=== PATIENT | male | born 1980 | race Caucasian/White ===

== ENCOUNTER 2018-12-12 16:29 | Inpatient (IN) ==
--- NOTE | 2018-12-12 16:39 | Emergency Department Note ---
Disposition Clinical Impression: Suicidal ideation Depression Qualifiers: Depression Type: unspecified Qualified Code(s): F32.9 - Major depressive disorder, single episode, unspecified Disposition: Still a Patient Condition: Good Instructions: Depression (ED), Suicide Prevention for Adults (ED) Referrals: NONE,PCP [Primary Care Provider] - Forms: ED Satisfaction Letter Time of Disposition: 19:01 Psych HPI - General Chief Complaint: ED Psychiatric Symptoms Stated Complaint: Psych Eval Time Seen by Provider: 12/12/18 16:31 Source: EMS Nursing Notes Reviewed: Yes Vital Signs Reviewed: Yes - History of Present Illness HPI Narrative: 38-year-old male has been feeling well for the last couple months. Says been getting more more depressed. Polysubstance abuse. Feels that he wants to hurt himself. Did not specify what his plan was but he said that he has one. He was seen in another [facility]. He was medically cleared. He is sent here for psych evaluation. He was stable in route and at the other facility. Patient denies other complaints at this time. - Related Data Home Medications Medication Instructions Recorded Confirmed No Known Home Drugs 12/12/18 12/12/18 Allergies Allergy/AdvReac Type Severity Reaction Status Date / Time No Known Allergies Allergy Verified 12/10/18 21:48 All systems ED: reviewed and negative except as stated. Constitutional: Reports: as per HPI Eyes: Reports: as per HPI ENT ED: Reports: as per HPI Cardiovascular: Reports: as per HPI Respiratory: Reports: as per HPI Gastrointestinal: Reports: as per HPI Psychiatric: Reports: anxiety, depression, suicidal thoughts Past Medical History - Past Medical History Attestation: Yes The following information was validated with the patient. Medical history: Reports: no medical history Psychiatric history: Reports: anxiety, depression - Social History Smoking Status: Current every day smoker Smokeless Tobacco Status: No Alcohol use: Reports: heavy Drug use: Reports: opiates, marijuana, methamphetamine Physical Exam - General Limitations: no limitations General appearance: alert, in no apparent distress - Head Head exam: atraumatic - Eye Eye exam: Present: normal appearance - ENT ENT exam: normal exam - Neck Neck exam: Present: normal inspection - Chest Chest inspection: Present: normal inspection - Respiratory Respiratory exam: Present: normal lung sounds bilaterally - Cardiovascular Cardiovascular exam: Present: regular rate, normal rhythm - Abdominal Exam Abdominal exam: Present: soft, Non-Tender - Extremities Exam Extremities exam: Present: normal inspection - Back Exam Back exam: Present: normal inspection - Psychiatric Psychiatric exam: Present: depressed, suicidal ideation - Skin Skin exam: Present: warm, dry, other (Mild sunburn upper extremities) Course Vital Signs Temperature 98.6 F 12/12/18 16:32 Pulse Rate 98 12/12/18 16:32 Respiratory Rate 18 12/12/18 16:32 Blood Pressure 125/79 12/12/18 16:32 O2 Sat by Pulse Oximetry 98 12/12/18 16:32 Temperature 98.6 F 12/12/18 16:32 Pulse Rate 98 12/12/18 16:32 Respiratory Rate 18 12/12/18 16:32 Blood Pressure 125/79 12/12/18 16:32 O2 Sat by Pulse Oximetry 98 12/12/18 16:32 Oxygen Delivery Oxygen Delivery Room Air Psych - MDM Narrative Medical decision making narrative: We reviewed the labs from the prior hospital he did have an elevated alcohol level. This was repeated when he got here and it was found to be acceptable for psych evaluation. [facility] was notified. Their evaluation was pending at time of shift change. The patient was signed out to Dr. Spears for final disposition. - Lab Data Lab Results 12/12/18 Range/Units 16:54 Ethyl Alcohol < 10 (Less than 10) mg/dL Psychiatric Medical Clearance - Medical Clearance Checklist Does the patient have a NEW psychiatric condition?: No Any abnormalities indicating possible medical illness?: No Any history of medical issues?: No Medical History: No Social History Section defined Any abnormal vital signs prior to transfer?: No Current Vitals: Last Vital Signs Temp 98.6 F 12/12/18 16:32 Pulse 98 12/12/18 16:32 Resp 18 12/12/18 16:32 BP 125/79 12/12/18 16:32 Pulse Ox 98 12/12/18 16:32 Is the patient intoxicated or cognitively impaired?: No Psychiatric Lab Panel: Drug Levels and Toxicity 12/12/18 16:54 Ethyl Alcohol < 10 Any abnormalities on the physical exam?: No Any abnormal labs?: No Does the patient require durable medical equiptment?: No Is the patient ambulatory?: Yes Is the patient a fall risk?: No Has the patient been medically cleared?: Yes Any acute medical condition require Tx prior to transfer?: No Statement of Medical Clearance: I have evaluated the patient, reviewed diagnostic information, and certify that the patient's medical condition is sufficiently stable that transfer to the psychiatric unit does not pose a significant risk of deterioration. Matilda.[email or web address] - Lynette Situation: Demographics Background: Presenting Complaint Assessment: Vital Signs, Course and respsone to treatment Recommendation: Barrier(s) to disposition, Recommendation based on pending studies, treatments, or consults S.BFrandy Report Given to: Dr. Tory Ojeda Repor Time: 19:00
[2018-12-12] MEDS ORDERED: *HR* LORazepam 2 MG/ML VIAL IM PRN (21:11)
[2018-12-12] MEDS ORDERED: Haloperidol Lactate 5 MG/ML VIAL IM PRN (21:11)
[2018-12-12] MEDS ORDERED: *HR* LORazepam 1 MG TABLET PO PRN (21:11)
[2018-12-12] MEDS ORDERED: MOM Conc 10 ML UD.LIQ PO PRN (21:11)
[2018-12-12] MEDS: Acetaminophen 325 MG TABLET PO PRN (22:23)
[2018-12-12] MEDS: hydrOXYzine pamoate 25 MG CAPSULE PO PRN (22:24)
[2018-12-13] MEDS: cloNIDine HCl 0.1 MG TABLET PO PRN (10:36)
[2018-12-13] MEDS: traZODone 50 MG TABLET PO PRN (22:49)
[2018-12-13] MEDS: Acetaminophen 325 MG TABLET PO PRN (22:49)
[2018-12-13] MEDS: hydrOXYzine pamoate 25 MG CAPSULE PO PRN (22:50)
[2018-12-14] MEDS: cloNIDine HCl 0.1 MG TABLET PO PRN ×2 (01:03→11:03)
--- NOTE | 2018-12-14 08:00 | Psychiatry History & Physical ---
Date of Encounter: 12/13/18 Time of Encounter: 07:00 History of Present Illness Patient Stated Chief Complaint: I was going to kill myself Medicare Admission Attestation: For traditional Medicare patients the provided hospital inpatient services are reasonable and necessary and in the case of services not specified as inpatient-only under 42 CFR 419.22 (n), that they are appropriately provided as inpatient services in accordance 42 CFR 412.3. For Critical Access Hospital the patient may reasonably be expected to be discharged or transferred to a hospital within 96 hours after admission to the Critical Access Hospital. Admitted From: Emergency Dept Plans for Post Hospital Care: Home History of Present Illness: Mr. Carlisle is a 38 year old male who is homeless with suciidal ideations and plan to OD. He is depressed about not seeing his girlfriend and other losses. He reports sad mood, decreased interest, feelings of guilt and worthlessness, low energy and ongoing suicidal ideations. He was in the emergency room 2 days ago for heat exhaustion due to being outside and it being so hot. He denies prior manic symptoms. He denies psychotic symptoms. He denies homicidal ideati ons. Past Med Surg Social Fam HX - Past Medical History Medical history: no medical history - Past Psychiatric History Psychiatric history: Reports: depression. Denies: prior suicide attempt, previous psychiatric hospitalization Past psychiatric history details: He is tried Zoloft in the past which she said made him feel shaky and anxious. He has also tried Vistaril which he said is not helpful. He has done detox and tablet before as well as residential at [facility]. He has no prior psychiatric inpatient hospitalizations, outpatient treatment, or suicide attempts. Family psychiatric history: Yes Family Psychiatric History Details: both parents depression Family History of Suicide: None - Social History Smoking Status: Current every day smoker Smokeless Tobacco Status: No Alcohol use: heavy Drug use: opiates, marijuana, methamphetamine, prescription drug abuse Medications & Allergies Buprenorphine HCl 1 tab SL DAILY 12/13/18 [History] Allergy/AdvReac Type Severity Reaction Status Date / Time No Known Allergies Allergy Verified 12/13/18 13:11 Review of Systems Constitutional: Reports: weakness Eyes: Denies: eye pain Ears, Nose, Throat: Denies: ear pain Cardiovascular: Denies: chest pain Respiratory: Denies: cough Gastrointestinal: Denies: abdominal pain Genitourinary male: Denies: urgency Musculoskeletal: Reports: joint pain Integumentary: Denies: rash Neurological: Denies: headache Psychiatric: Reports: depression, suicidal ideation, anhedonia. Denies: homicidal ideation, auditory hallucinations, visual hallucinations Endocrine: Reports: fatigue Hematologic/Lymphatic: Denies: easy bleeding Allergic/Immunologic: Denies: facial swelling Exam - HEENT Head exam IM: Present: atraumatic Eye exam IM: Present: EOMI ENT exam IM: Present: mucous membranes moist - Neurological Neurological exam: Present: CN II-XII intact - Respiratory Respiratory exam IM: Absent: respiratory distress - GI/Abdominal GI/Abdominal exam IM: Present: no peritoneal signs - Extremities Extremities exam IM: Present: full ROM - Skin Skin exam IM: Absent: abrasion - Constitutional Vitals: Temp Pulse Resp BP Pulse Ox 98.0 F 68 16 113/74 99 12/13/18 20:08 12/13/18 20:08 12/13/18 20:08 12/13/18 20:08 12/13/18 20:08 General appearance: age & developmentally appropriate - Musculoskeletal Gait: slow Station: stooped Strength & Tone: mild weakness - Psychiatric Patient Orientation: Yes Person, Yes Time, Yes Place, Yes Circumstance Level of alertness: Alert Behavior: tearful Psychomotor activity: Slowed Eye Contact: Minimal Contact Mood Description: Depressed Patient description of mood: sad Affect description: blunted Speech Volume: Soft/Quiet Speech pattern: normal rate Language & Vocabulary: consistent with education Thought Process: Intact Thought Content: Yes Suicidal ideation Perceptual Disturbances: No Auditory hallucinations, No Visual hallucinations Attention Span Ability: Capable of Focused Attention Memory Description: Grossly Intact Patient Reliability: Reliable Historian Fund of knowledge: Yes abstraction ability, Yes average, Yes aware of current e vents Intelligence Estimate: Average Judgment: Limited Insight: Partial Results - Labs Labs: Laboratory Last Values Ethyl Alcohol < 10 mg/dL (Less than 10) 12/12/18 16:54 Assessment and Plan (1) Depression Current visit: Yes Status: Acute Plan: Admit inpatient for safety and stabilization, Close observation, Suicide Precautions per unit protocol, Encourage participation in unit milieu, Group Therapy, Monitor sleep, Monitor appetite Additional Plan: buspar 5mg 3 times a day for anxiety and Lexapro 10 every morning for depression. Encourage group attendance. Therapist work on discharge planning. Risks, benefits, side effects, alternatives discussed w/pt: Yes Patient agreeable to treatment: Yes Plans for Post Hospital Care: Home Estimated Length of Stay (Days): 3 Qualifiers: Depression Type: major depressive disorder Major depression recurrence: recurrent Active/Remission status: currently active Major depression episode severity: severe Psychotic features: without psychotic features Qualified Code(s): F33.2 - Major depressive disorder, recurrent severe without psychotic features
[2018-12-14] MEDS: hydrOXYzine pamoate 25 MG CAPSULE PO PRN (21:43)
[2018-12-14] MEDS: traZODone 50 MG TABLET PO PRN (21:44)
--- NOTE | 2018-12-15 09:30 | Psychiatry Progress Note ---
Date of Encounter: 12/15/18 Time of Encounter: 08:55 Subjective Interval history: Client seen at bedside. He was just waking up. States mood as "tired, anxious". He is anxious about where he will live after discharge. Discussed that case management social worker is looking into the [facility]" patient mentioned. Client denies suicide and homicidal ideation/plan/intent. He was started on Lexapro and Buspar yesterday. Client reports he will be compliant with medications and looks forward to seeing impact of medications on his mood. Review of Systems Constitutional: Denies: fever, weight change Neurological: Denies: headache, weakness Psychiatric: Reports: depression, anxiety, anhedonia. Denies: abnormal sleep pattern, suicidal ideation, homicidal ideation, auditory hallucinations, visual hallucinations Results - Vital Signs Vital Signs: Temp Pulse Resp BP Pulse Ox 98.2 F 83 18 124/82 98 12/14/18 21:00 12/14/18 21:00 12/14/18 21:00 12/14/18 21:00 12/14/18 21:00 Assessment and Plan (1) Depression Current visit: Yes Status: Acute Plan: Continue hospitalization, Suicide Precautions per unit protocol, Encourage participation in unit milieu, Group Therapy Additional Plan: Started on Lexapro 10 mg for depression and Buspar 5 mg TID for anxiety yesterday. Will continue current medication and monitor for suicide ideation/plan/intent and changes in mood. Risks, benefits, side effects, alternatives discussed w/pt: Yes Patient agreeable to treatment: Yes Qualifiers: Depression Type: major depressive disorder Major depression recurrence: recurrent Active/Remission status: currently active Major depression episode severity: severe Psychotic features: without psychotic features Qualified Code(s): F33.2 - Major depressive disorder, recurrent severe without psychotic features Consult Discharge Plan - Plan Referrals: NONE,PCP [Primary Care Provider] - - Attending Attestation I examined this patient and my medical decision-making was reviewed with the Resident Physician. I agree with the documented findings, disposition and treatment plan as described except to the extent set forth below. Met with patient. Agree with above. Psychiatry Exam - Constitutional Vitals: Temp Pulse Resp BP Pulse Ox 98.2 F 83 18 124/82 98 12/14/18 21:00 12/14/18 21:00 12/14/18 21:00 12/14/18 21:00 12/14/18 21:00 General appearance: age & developmentally appropriate - Musculoskeletal Station: relaxed Strength & Tone: normal for patient - Psychiatric Patient Orientation: Yes Person, Yes Time, Yes Place, Yes Circumstance Level of alertness: Alert Behavior: nervous, anxious Psychomotor activity: Normal Eye Contact: Maintains Eye Contact Mood Description: Depressed, Anxious Affect description: congruent with mood Speech Volume: Normal Speech pattern: normal rate, normal rhythm, normal tone, fluent, appropriate, clear Language & Vocabulary: consistent with education Thought Process: Intact Thought Content: Yes Intact, No Suicidal ideation, No Homicidal ideation Perceptual Disturbances: No Reacting to internal stimuli, No Auditory hallucinations, No Visual hallucinations Attention Span Ability: Capable of Focused Attention Memory Description: Grossly Intact Patient Reliability: Reliable Historian Fund of knowledge: Yes abstraction ability Intelligence Estimate: Average Judgment: Good Insight: Full
[2018-12-15] MEDS: cloNIDine HCl 0.1 MG TABLET PO PRN ×2 (09:43→17:58)
[2018-12-15] MEDS: traZODone 50 MG TABLET PO PRN (21:11)
[2018-12-15] MEDS: Acetaminophen 325 MG TABLET PO PRN (21:11)
[2018-12-15] MEDS: hydrOXYzine pamoate 25 MG CAPSULE PO PRN (21:11)
[2018-12-16] MEDS: cloNIDine HCl 0.1 MG TABLET PO PRN ×3 (09:15→21:30)
--- NOTE | 2018-12-16 13:59 | Psychiatry Progress Note ---
Date of Encounter: 12/16/18 Time of Encounter: 10:00 Subjective Interval history: Client seen at bedside. He was asleep. Euthymic mood and congruent mood. Mood stated as "good, no thoughts of self harm". He looks forward to going to [place] to a inpatient setting. Reports no side affects from current medication. Denies suicide and homicide ideation/plan/intent. He did not participate in group via nursing staff yesterday. Discussed importance of actively participating in group and his role in getting better. Review of Systems Constitutional: Denies: fever, weakness, night sweats Cardiovascular: Denies: chest pain, palpitations Respiratory: Denies: cough, wheezes Genitourinary male: Denies: urgency Musculoskeletal: Denies: joint pain, myalgia Psychiatric: Reports: anxiety. Denies: abnormal sleep pattern, suicidal ideation, homicidal ideation, auditory hallucinations, visual hallucinations Results - Vital Signs Vital Signs: Temp Pulse Resp BP Pulse Ox 97.8 F 79 18 126/86 99 12/16/18 09:00 12/16/18 09:00 12/16/18 09:00 12/16/18 09:00 12/16/18 09:00 Assessment and Plan (1) Depression Current visit: Yes Status: Acute Plan: Continue hospitalization, Encourage participation in unit milieu, Group Therapy, Monitor sleep, Monitor appetite Risks, benefits, side effects, alternatives discussed w/pt: Yes Patient agreeable to treatment: Yes Qualifiers: Depression Type: major depressive disorder Major depression recurrence: recurrent Active/Remission status: currently active Major depression episode severity: severe Psychotic features: without psychotic features Qualified Code(s): F33.2 - Major depressive disorder, recurrent severe without psychotic features Consult Discharge Plan - Plan Referrals: NONE,PCP [Primary Care Provider] - - Attending Attestation I examined this patient and my medical decision-making was reviewed with the Resident Physician. I agree with the documented findings, disposition and treatment plan as described except to the extent set forth below. Client states he wants inpatient rehab. Asking about [facility] which is a new facility in the area. Will place a referral and hopefully discharge this week. Psychiatry Exam - Constitutional Vitals: Temp Pulse Resp BP Pulse Ox 97.8 F 79 18 126/86 99 12/16/18 09:00 12/16/18 09:00 12/16/18 09:00 12/16/18 09:00 12/16/18 09:00 General appearance: age & developmentally appropriate - Musculoskeletal Gait: normal Station: relaxed Strength & Tone: normal for patient - Psychiatric Patient Orientation: Yes Person, Yes Time, Yes Place, Yes Circumstance Level of alertness: Alert Behavior: calm, cooperative Psychomotor activity: Normal Eye Contact: Maintains Eye Contact Mood Description: Euthymic/stable Affect description: congruent with mood Speech Volume: Normal Speech pattern: normal rate, normal rhythm, normal tone, fluent Language & Vocabulary: consistent with education Thought Process: Intact, Goal Oriented Thought Content: Yes Intact, No Suicidal ideation, No Homicidal ideation Perceptual Disturbances: No Reacting to internal stimuli, No Auditory hallucinations, No Visual hallucinations Attention Span Ability: Capable of Focused Attention Memory Description: Grossly Intact Patient Reliability: Reliable Historian Fund of knowledge: Yes abstraction ability Intelligence Estimate: Average Judgment: Good Insight: Partial
[2018-12-16] MEDS: Acetaminophen 325 MG TABLET PO PRN ×2 (15:33→23:55)
[2018-12-17] MEDS: cloNIDine HCl 0.1 MG TABLET PO PRN ×3 (09:00→21:09)
--- NOTE | 2018-12-17 10:49 | Psychiatry Progress Note ---
Date of Encounter: 12/17/18 Time of Encounter: 10:30 Subjective Interval history: Patient seen today at bedside, noted to be resting comfortably. Patient states he is doing well, just tired. Patient states he is looking forward to inpatient rehab. Staff reports that patient has been calm and cooperative but mostly withdrawn to room, declining group activities. Patient denies any side effects from medications. Denies any current SI, HI, or AVH. Discussed the importance of attending groups and developing appropriate coping skills. Client states he is "definitely better than when I got here." Mood has stabilized. However, still having some daytime anxiety. Discussed options and he would like to try low dose Seroquel as a prn during the daytime. Looking forward to rehab. States "[facility] will be the right place for me." Denies having anywhere to go until rehab facility opens (expected to open this week). Plans to call mother today but doesn't know if this will be a good place for him. States he doesn't want to return to where he was as he "knows" himself and will fall back into the pattern of using drugs. Has made the decision to stay sober and thinks he will be better off remaining in a structured setting until he can get a residential rehab bed. Review of Systems Constitutional: Denies: fever, chills, weakness, weight change Eyes: Denies: eye pain, vision change Ears, Nose, Throat: Denies: ear pain, throat pain, dental pain, hearing loss, congestion Cardiovascular: Denies: chest pain, palpitations, dyspnea on exertion Respiratory: Denies: cough, dyspnea, wheezes Gastrointestinal: Denies: abdominal pain, nausea, vomiting, diarrhea, constipation Musculoskeletal: Denies: joint swelling, joint pain Neurological: Denies: headache, weakness, numbness, memory loss Psychiatric: Reports: anxiety. Denies: abnormal sleep pattern, suicidal ideation, homicidal ideation, auditory hallucinations, visual hallucinations Results - Vital Signs Vital Signs: Temp Pulse Resp BP Pulse Ox 98 F 71 18 124/84 99 12/17/18 09:00 12/17/18 09:00 12/17/18 09:00 12/17/18 09:00 12/17/18 09:00 Assessment and Plan (1) Depression Current visit: Yes Status: Acute Plan: Continue hospitalization, Close observation, Suicide Precautions per unit protocol, Encourage participation in unit milieu, Group Therapy, Monitor sleep, Monitor appetite Risks, benefits, side effects, alternatives discussed w/pt: Yes Patient agreeable to treatment: Yes Qualifiers: Depression Type: major depressive disorder Major depression recurrence: recurrent Active/Remission status: currently active Major depression episode severity: severe Psychotic features: without psychotic features Qualified Code(s): F33.2 - Major depressive disorder, recurrent severe without psychotic features Consult Discharge Plan - Plan Referrals: NONE,PCP [Primary Care Provider] - Psychiatry Exam - Constitutional Vitals: Temp Pulse Resp BP Pulse Ox 98 F 71 18 124/84 99 12/17/18 09:00 12/17/18 09:00 12/17/18 09:00 12/17/18 09:00 12/17/18 09:00 General appearance: age & developmentally appropriate - Musculoskeletal Gait: normal Station: relaxed Strength & Tone: normal for patient - Psychiatric Patient Orientation: Yes Person, Yes Time, Yes Place, Yes Circumstance Level of alertness: Alert Behavior: calm, cooperative Psychomotor activity: Normal Eye Contact: Maintains Eye Contact Mood Description: Anxious Patient description of mood: "good" Affect description: congruent with mood Speech Volume: Normal Speech pattern: normal rate, normal rhythm, normal tone, fluent, spontaneous Language & Vocabulary: consistent with education Thought Process: Logical Thought Content: Yes Intact, No Suicidal ideation, No Homicidal ideation Perceptual Disturbances: No Auditory hallucinations, No Visual hallucinations Attention Span Ability: Capable of Focused Attention Memory Description: Grossly Intact Patient Reliability: Reliable Historian Fund of knowledge: Yes average Intelligence Estimate: Average Judgment: Fair Insight: Partial
[2018-12-17] MEDS: Acetaminophen 325 MG TABLET PO PRN (16:33)
[2018-12-17] MEDS: Mag Hydrox/Al Hydrox/Simeth 30 ML UDC PO PRN (20:10)
[2018-12-18] MEDS: cloNIDine HCl 0.1 MG TABLET PO PRN ×2 (09:02→20:14)
--- NOTE | 2018-12-18 10:05 | Psychiatry Progress Note ---
Date of Encounter: 12/18/18 Time of Encounter: 08:45 Subjective Interval history: Patient seen on day unit interacting with other patients. He states he is doing continually better and just waiting on placement in a rehab facility. He endorses some insomina, but decided to get out of bed to interact with others. Added 50 mg Seroquel HS. Patient states he went to one group yesterday and that he is going to continue to try to make an effort. He denies any current SI, HI, or AVH. Staff reports patient has been pleasant and cooperative, but that patient has been experiencing some withdrawal symptoms and received PRN clonidine. Review of Systems Psychiatric: Reports: anxiety. Denies: abnormal sleep pattern, suicidal ideation, homicidal ideation, auditory hallucinations, visual hallucinations Results - Vital Signs Vital Signs: Temp Pulse Resp BP Pulse Ox 97.3 F L 62 18 118/78 99 12/18/18 09:00 12/18/18 09:00 12/18/18 09:00 12/18/18 09:00 12/18/18 09:00 Assessment and Plan (1) Depression Current visit: Yes Status: Acute Additional Plan: Increase Seroquel 150mg QHS for sustained insomina Risks, benefits, side effects, alternatives discussed w/pt: Yes Patient agreeable to treatment: Yes Qualifiers: Depression Type: major depressive disorder Major depression recurrence: recurrent Active/Remission status: currently active Major depression episode severity: severe Psychotic features: without psychotic features Qualified Code(s): F33.2 - Major depressive disorder, recurrent severe without psychotic features Consult Discharge Plan - Plan Referrals: NONE,PCP [Primary Care Provider] - - Attending Attestation I examined this patient and my medical decision-making was reviewed with the Resident Physician. I agree with the documented findings, disposition and treatment plan as described. Psychiatry Exam - Constitutional Vitals: Temp Pulse Resp BP Pulse Ox 97.3 F L 62 18 118/78 99 12/18/18 09:00 12/18/18 09:00 12/18/18 09:00 12/18/18 09:00 12/18/18 09:00 General appearance: age & developmentally appropriate, well-groomed - Musculoskeletal Gait: normal Station: relaxed Strength & Tone: normal for patient - Psychiatric Patient Orientation: Yes Person, Yes Time, Yes Place, Yes Circumstance Level of alertness: Alert Behavior: calm, cooperative Psychomotor activity: Normal Eye Contact: Maintains Eye Contact Mood Description: Euthymic/stable Patient description of mood: "good" Affect description: congruent with mood Speech Volume: Normal Speech pattern: normal rate, normal rhythm Language & Vocabulary: consistent with education Thought Process: Intact Thought Content: Yes Intact Perceptual Disturbances: No Reacting to internal stimuli, No Auditory hallucinations, No Visual hallucinations Attention Span Ability: Capable of Focused Attention Memory Description: Grossly Intact Patient Reliability: Reliable Historian Fund of knowledge: Yes average Intelligence Estimate: Average Judgment: Fair Insight: Partial
[2018-12-18] MEDS: Mag Hydrox/Al Hydrox/Simeth 30 ML UDC PO PRN ×2 (13:02→20:41)
[2018-12-18] MEDS: hydrOXYzine pamoate 25 MG CAPSULE PO PRN (20:15)
[2018-12-19] MEDS: cloNIDine HCl 0.1 MG TABLET PO PRN ×2 (08:24→20:14)
--- NOTE | 2018-12-19 09:44 | Psychiatry Progress Note ---
Date of Encounter: 12/19/18 Time of Encounter: 09:40 Subjective Interval history: Client states his anxiety is still high and he is sleeping poorly. Feels like the Seroquel helps but is not enough. States at times he feels physically uncomfortable because of the anxiety. States he believes his anxiety is due to a combination of stopping the Suboxone and becoming stir crazy from being on a locked unit. Has insight. Continues to want rehab. Staff learned yesterday that there has been a delay in opening [facility] so client will likely have to go elsewhere. He is open to calling places today to see if anywhere else might have a bed for him. Will also increase Seroquel today to help with anxiety and insomnia. Review of Systems Constitutional: Denies: fever, chills, weakness, weight change Eyes: Denies: eye pain, vision change Ears, Nose, Throat: Denies: ear pain, throat pain, dental pain, hearing loss, congestion Cardiovascular: Denies: chest pain, palpitations, dyspnea on exertion Respiratory: Denies: cough, dyspnea, wheezes Gastrointestinal: Denies: abdominal pain, nausea, vomiting, diarrhea, constipation Musculoskeletal: Denies: joint swelling, joint pain Neurological: Denies: headache, weakness, numbness, memory loss Psychiatric: Reports: anxiety. Denies: abnormal sleep pattern, suicidal ideation, homicidal ideation, auditory hallucinations, visual hallucinations Results - Vital Signs Vital Signs: Temp Pulse Resp BP Pulse Ox 98.3 F 77 18 125/87 99 12/19/18 08:47 12/19/18 08:47 12/19/18 08:47 12/19/18 08:47 12/19/18 08:47 Assessment and Plan (1) Depression Current visit: Yes Status: Acute Plan: Continue hospitalization, Close observation, Suicide Precautions per unit protocol, Encourage participation in unit milieu, Group Therapy, Monitor sleep, Monitor appetite Risks, benefits, side effects, alternatives discussed w/pt: Yes Patient agreeable to treatment: Yes Qualifiers: Depression Type: major depressive disorder Major depression recurrence: recurrent Active/Remission status: currently active Major depression episode severity: severe Psychotic features: without psychotic features Qualified Code(s): F33.2 - Major depressive disorder, recurrent severe without psychotic features Consult Discharge Plan - Plan Referrals: NONE,PCP [Primary Care Provider] - Psychiatry Exam - Constitutional Vitals: Temp Pulse Resp BP Pulse Ox 98.3 F 77 18 125/87 99 12/19/18 08:47 12/19/18 08:47 12/19/18 08:47 12/19/18 08:47 12/19/18 08:47 General appearance: age & developmentally appropriate, well-groomed, well- nourished - Musculoskeletal Gait: normal Station: relaxed Strength & Tone: normal for patient - Psychiatric Patient Orientation: Yes Person, Yes Time, Yes Place Level of alertness: Alert Behavior: calm, cooperative Psychomotor activity: Normal Eye Contact: Maintains Eye Contact Mood Description: Anxious Affect description: blunted Speech Volume: Normal Speech pattern: normal rate, normal rhythm, normal tone, fluent, spontaneous Language & Vocabulary: consistent with education Thought Process: Linear, Goal Oriented Thought Content: No Suicidal ideation, No Homicidal ideation, No Overt delusions Perceptual Disturbances: No Auditory hallucinations, No Visual hallucinations Attention Span Ability: Capable of Focused Attention Memory Description: Grossly Intact Patient Reliability: Reliable Historian Fund of knowledge: Yes abstraction ability, Yes aware of current events Intelligence Estimate: Average Judgment: Fair Insight: Partial
[2018-12-19] MEDS: Nicotine 7 MG PATCH.TD24 TD SCH (11:02)
[2018-12-19] MEDS: Acetaminophen 325 MG TABLET PO PRN (17:46)
[2018-12-20] MEDS: cloNIDine HCl 0.1 MG TABLET PO PRN ×3 (08:11→20:38)
[2018-12-20] MEDS: Nicotine 7 MG PATCH.TD24 TD SCH (08:12)
--- NOTE | 2018-12-20 10:05 | Psychiatry Progress Note ---
Date of Encounter: 12/20/18 Time of Encounter: 09:57 Subjective Interval history: Client accepted the list of rehab facilities and called one in [place] yesterday. States he has to do an "assessment" but that he doesn't think anyone will be available to do this with him on the weekend. Expects a call back from the rehab tomorrow. Willing to call other places but he is correct that most places will likely not have anyone to start an intake with him until tomorrow. He is still hopeful [facility] will open their doors prior to him being accepted elsewhere as he thinks this rehab will be the best fit for him. He also reached out to his mother yesterday on the off chance he could stay with her for a while but said today this is not going to be possible. Still feels anxious and feels particularly restless at night. Takes a lot of prns. Discussed how rehabs are unlikely to let him take a lot of prns during the day and he is agreeable to trying to monitor/restrict his use. However, he did ask if he could take Neurontin at night. Apparently he has a current prescription for Neurontin and has been taking it for a couple of years. States his Suboxone doctor gives it to him. He never mentioned that he takes this medication before today. When asked about other home meds client reports he was only prescribed the Suboxone, Neurontin, and Omeprazole. Will verify his home dose today and get it ordered. Client states it really helps with his restlessness at night. Other than the anxiety he reports being in a good mood. Denies SI, intent, or plan. Has more affect and is more conversant than when this auto service writer first started meeting with him. Review of Systems Constitutional: Denies: fever, chills, weakness, weight change Eyes: Denies: eye pain, vision change Ears, Nose, Throat: Denies: ear pain, throat pain, dental pain, hearing loss, congestion Cardiovascular: Denies: chest pain, palpitations, dyspnea on exertion Respiratory: Denies: cough, dyspnea, wheezes Gastrointestinal: Denies: abdominal pain, nausea, vomiting, diarrhea, constipation Musculoskeletal: Denies: joint swelling, joint pain Neurological: Denies: headache, weakness, numbness, memory loss Psychiatric: Reports: anxiety. Denies: abnormal sleep pattern, suicidal ideation, homicidal ideation, auditory hallucinations, visual hallucinations Results - Vital Signs Vital Signs: Temp Pulse Resp BP Pulse Ox 98.9 F 81 16 118/76 99 12/20/18 09:00 12/20/18 09:00 12/20/18 09:00 12/20/18 09:00 12/20/18 09:00 Assessment and Plan (1) Depression Current visit: Yes Status: Acute Plan: Continue hospitalization, Close observation, Suicide Precautions per unit protocol, Encourage participation in unit milieu, Group Therapy, Monitor sleep, Monitor appetite Risks, benefits, side effects, alternatives discussed w/pt: Yes Patient agreeable to treatment: Yes Qualifiers: Depression Type: major depressive disorder Major depression recurrence: recurrent Active/Remission status: currently active Major depression episode severity: severe Psychotic features: without psychotic features Qualified Code(s): F33.2 - Major depressive disorder, recurrent severe without psychotic features Consult Discharge Plan - Plan Referrals: NONE,PCP [Primary Care Provider] - Psychiatry Exam - Constitutional Vitals: Temp Pulse Resp BP Pulse Ox 98.9 F 81 16 118/76 99 12/20/18 09:00 12/20/18 09:00 12/20/18 09:00 12/20/18 09:00 12/20/18 09:00 General appearance: age & developmentally appropriate, well-groomed, well- nourished - Musculoskeletal Gait: normal Station: relaxed Strength & Tone: normal for patient - Psychiatric Patient Orientation: Yes Person, Yes Time, Yes Place Level of alertness: Alert Behavior: calm, cooperative Psychomotor activity: Normal Eye Contact: Maintains Eye Contact Mood Description: Anxious Affect description: congruent with mood Speech Volume: Normal Speech pattern: normal rate, normal rhythm, normal tone, fluent, spontaneous Language & Vocabulary: consistent with education Thought Process: Linear, Goal Oriented Thought Content: No Suicidal ideation, No Homicidal ideation, No Overt delusions Perceptual Disturbances: No Auditory hallucinations, No Visual hallucinations Attention Span Ability: Capable of Focused Attention Memory Description: Grossly Intact Patient Reliability: Reliable Historian Fund of knowledge: Yes abstraction ability, Yes aware of current events Intelligence Estimate: Average Judgment: Fair Insight: Partial
[2018-12-21] MEDS: Nicotine 7 MG PATCH.TD24 TD SCH (08:26)
--- NOTE | 2018-12-21 09:05 | Discharge Summary ---
Date of Encounter: 12/21/18 Time of Encounter: 08:35 Diagnosis - Discharge Diagnosis (1) Depression Status: Acute Qualifiers: Depression Type: major depressive disorder Major depression recurrence: r ecurrent Active/Remission status: currently active Major depression episode severity: severe Psychotic features: without psychotic features Qualified Code(s): F33.2 - Major depressive disorder, recurrent severe without psychotic features Medications - Discharge Medications Prescriptions: Buspirone HCl [Buspar] 5 mg PO TID #45 tablet Escitalopram [Lexapro] 10 mg PO DAILY #15 tablet Omeprazole [PriLOSEC] 20 mg PO BIDAC #15 capsule. Quetiapine Fumarate [Seroquel] 50 mg PO TID PRN #45 tablet PRN Reason: Anxiety Quetiapine Fumarate [Seroquel] 200 mg PO HS #15 tablet Buspirone HCl [Buspar] 5 mg PO TID #45 tablet 12/21/18 [Rx] Escitalopram [Lexapro] 10 mg PO DAILY #15 tablet 12/21/18 [Rx] Omeprazole [PriLOSEC] 20 mg PO BIDAC #15 capsule. 12/21/18 [Rx] Quetiapine Fumarate [Seroquel] 50 mg PO TID PRN #45 tablet 12/21/18 [Rx] Quetiapine Fumarate [Seroquel] 200 mg PO HS #15 tablet 12/21/18 [Rx] Allergy/AdvReac Type Severity Reaction Status Date / Time No Known Allergies Allergy Verified 12/13/18 13:11 Results Procedures and tests throughout hospitalization: Completed Lab Orders Category Date Time Status Blood Alcohol [Ethanol] Stat Lab 12/12/18 16:54 Completed Provider Date of admission: 12/14/18 07:34 Primary care physician: PCP NONE Discharging clinician: Mónica Clemons Psychiatry Exam - Constitutional Vitals: Temp Pulse Resp BP Pulse Ox 98.7 F 98 16 113/72 98 12/20/18 20:35 12/20/18 20:35 12/20/18 20:35 12/20/18 20:35 12/20/18 20:35 General appearance: age & developmentally appropriate, well-groomed, well- nourished - Musculoskeletal Gait: normal Station: relaxed Strength & Tone: normal for patient - Psychiatric Patient Orientation: Yes Person, Yes Time, Yes Place, Yes Circumstance Level of alertness: Alert Behavior: calm, cooperative Psychomotor activity: Normal Eye Contact: Maintains Eye Contact Mood Description: Euthymic/stable Patient description of mood: Good Affect description: congruent with mood, full range Speech Volume: Normal Speech pattern: normal rate, normal rhythm, normal tone, fluent, spontaneous Language & Vocabulary: consistent with education Thought Process: Linear, Goal Oriented Thought Content: No Suicidal ideation, No Homicidal ideation, No Overt delusions Perceptual Disturbances: No Auditory hallucinations, No Visual hallucinations Attention Span Ability: Capable of Focused Attention Memory Description: Grossly Intact Patient Reliability: Reliable Historian Fund of knowledge: Yes abstraction ability, Yes aware of current events Intelligence Estimate: Average Judgment: Good Insight: Full Hospital Course Hospital course: Mr. Carlisle is a 38 year old male who was admitted for substance use and depression. He was started on Lexapro and BuSpar for his mood and anxiety. He had clonidine and Phenergan as needed for opiate withdrawal. He also used Seroquel for further treatment of anxiety and mood lability.Patient was educated of diagnosis and the risk-benefit side effects of this alternative treatment options and was monitored for responsiveness and side effects. Mood anxiety sleep and appetite interest improved as did future orientation. Self-harm thoughts subsided, thinking cleared, psychosis resolved, and mood stabilized. Patient was able to attend both individual and group therapy sessions as well as meet with the psychiatrist daily and urged to discuss any medication or treatment issues or other concerns. The patient was educated primarily by verbal means about their diagnosis and manifestations in their life. The option for treatment including group and individual therapy programming was offered to the patient in addition to the use of medications with all their potential risks, benefits, and side effects as well as the risks of not taking medication and non-adhereance were discussed with the patient at length. The patient was given the opportunity to ask questions and was noted to participate in the treatment in the planning process. The patient felt ready and eager to be discharged from the inpatient psychiatric unit to continue on with treatment as an outpatient. The patient agreed that is they were safe for this disposition. The patient was considered to be able to participate in informed consent and decision making with respect to medical, legal, and financial issues of the time of discharge. At the time of discharge the patient adamantly denied any concerns for lethality including suicidal or homicidal thoughts ideations or plans and was future oriented toward ongoing mental health care, medical follow- up and sobriety. Time spent discussing smoking cessation with patient: 3 to 10 minutes Does patient wish to continue nicotine replacement upon disc: No - Time Spent with Patient Total time spent providing and/or coordinating discharge services: 25 Less than 30 minutes Specific discharge activities: Interval history reviewed. Available labs reviewed . Psychotherapy provided. Patient had an opportunity to ask questions and address concerns. Patient was in agreement with the treatment plan. The risks benefits and side effects of medications were discussed with the patient, including alternatives and treatment. The patient was educated on the abstaining from any alcohol or illicit substances, following up with all scheduled appointments, and taking all medications as prescribed. The patient was educated on 90 meetings in 90 days and to find a sponsor. Assessment and Plan - Patient/Caregiver Discharge Instructions Activity: resume usual activities as tolerated Diet: regular diet Additional Instructions: Continue current medications. Follow up with outpatient mental health. Encourage continued therapy in a group or individual setting. The patient was discharged to home. - Follow up Plan Follow up with: [facility] [Other] Functional capacity at discharge: independent ambulation Overall status at discharge: Stable Disposition: Home, Self-Care Quality - Multiple Antipsychotics Patient discharged on 2 or more antipsychotic medications: No Procedures - Procedures Procedures: Medication Management, Crisis Stabilization, Supportive Therapy, Group Therapy, Psychoeducational Therapy
[2018-12-21] MEDS: Acetaminophen 325 MG TABLET PO PRN (10:19)
[2018-12-21 10:30] VITALS: BP 127/61
== END 2018-12-21 13:15 | disposition home or self-care (01) | DRG 751 ==
LOC: EMEROOARM 16:29 → 1ANU 16:29
PROVIDERS: ADMIT Psychiatry & Neurology Psychiatry; ATTEND Psychiatry & Neurology Psychiatry